=== PATIENT | female | born 1975 | race Two or more races ===

== ENCOUNTER 2018-08-07 19:30 | Emergency (ER) | payer OTHER ==
[~2018-08-07] VITALS: Ht 152.4 cm; Wt 58.1 kg
[2018-08-07] MEDS ORDERED: TROMBONEX CAPS1 EACH (20:02)
== END 2018-08-07 22:32 | disposition home or self-care (01) ==
LOC: ER 19:30
DX: R10.13 Epigastric pain (principal)

== ENCOUNTER 2018-08-13 18:17 | Emergency (ER) | payer OTHER ==
[~2018-08-13] VITALS: Ht 152.4 cm; Wt 54.9 kg
[~2018-08-13 18:17] MED LIST: TROMBONEX CAPS1 EACH
== END 2018-08-14 12:08 | disposition home or self-care (01) ==
LOC: ER 18:17
DX: N83.291 Other ovarian cyst, right side (principal)

== ENCOUNTER 2024-02-02 12:26 | Emergency (ER) | payer OTHER ==
[~2024-02-02] VITALS: Ht 152.4 cm; Wt 51.7 kg
[2024-02-02] MEDS ORDERED: 0.9 % SODIUM CHLORIDE 1,000 ML IV SCH (13:14)
[2024-02-02] MEDS ORDERED: LEVALBUTEROL HCL 0.63 MG/3 ML SOLUTION IH ONE (13:15)
[2024-02-02] MEDS ORDERED: FAMOTIDINE/PF 20 MG in 0.9 % SODIUM CHLORIDE 8 ML IV PUSH STA (13:15)
[2024-02-02 13:38] LABS: HEMATOCRIT 39.4 % (36.0-45.00); HEMOGLOBIN 13.4 g/dL (12.0-15.00); MEAN CORPUSCULAR HEMOGLOBIN 29.2 pg (27.00-32.0); MEAN CORPUSCULAR HGB CONC 33.9 g/dl (32.0-36.0); PLATELET COUNT 211 K/uL (150-450); RED BLOOD COUNT 4.58 M/uL (4.00-6.00); RED CELL DISTRIBUTION WIDTH 13.3 % (11.5-14.5)
[2024-02-02 14:53] LABS: ABG PH 7.409 (7.35-7.45); ABG PO2 93.3 mmHg (80-100); ABG pCO2 40.9 mmHg (35-45); BASE EXCESS 0.6 mmol/l; BICARBONATE 25.3 mmol/l (23-25); SaO2 97.3 %; Tco2 26.6 mmol/l; allen test SATISFACTORY; o2 21 %; puncture site RADIAL RIGHT
[2024-02-02] MEDS ORDERED: CEFTRIAXONE SODIUM 1,000 MG VIAL IV ONE (15:45)
== END 2024-02-02 16:45 | disposition home or self-care (01) ==
LOC: ER 12:26
PROVIDERS: Emergency Medicine
DX: J22 Unspecified acute lower respiratory infection (principal); Z20.822 Contact with and (suspected) exposure to COVID-19

== ENCOUNTER 2024-04-18 21:35 | Emergency (ER) | payer OTHER ==
[~2024-04-18] VITALS: Ht 152.4 cm; Wt 49.9 kg
[2024-04-19] MEDS ORDERED: KETOROLAC TROMETHAMINE 60 MG VIAL IM STA (02:49)
[2024-04-19] MEDS ORDERED: KETOROLAC TROMETHAMINE 60 MG VIAL IM ONE (02:59)
[2024-04-19 03:27] LABS: HEMATOCRIT 41.5 % (36.0-45.00); HEMOGLOBIN 14.1 g/dL (12.0-15.00); MEAN CELL VOLUME 85.3 fL (80.00-100.00); PLATELET COUNT 470 K/uL (150-450); RED BLOOD COUNT 4.87 M/uL (4.00-6.00); RED CELL DISTRIBUTION WIDTH 13.1 % (11.5-14.5)
== END 2024-04-19 04:43 | disposition home or self-care (01) ==
LOC: ER 21:36
DX: B34.9 Viral infection, unspecified (principal)
CPT/HCPCS: 36415; 96372; 99282; J1885